=== PATIENT | male | born 1960 | race African-American/Black ===

== ENCOUNTER 2024-11-27 11:24 | Outpatient (CLI) | payer OTHER | END 2024-11-27 11:25 | disposition home or self-care (01) | LOC: CSHWCC 11:24 | PROVIDERS: ATTEND Nurse Practitioner Family | DX: I87.333 Chronic venous hypertension (idiopathic) with ulcer and inflammation of bilateral lower extremity (principal); L97.212 Non-pressure chronic ulcer of right calf with fat layer exposed; L97.321 Non-pressure chronic ulcer of left ankle limited to breakdown of skin; L97.221 Non-pressure chronic ulcer of left calf limited to breakdown of skin; L97.311 Non-pressure chronic ulcer of right ankle limited to breakdown of skin; L08.9 Local infection of the skin and subcutaneous tissue, unspecified | CPT/HCPCS: 11042; 11045; G0463; 99215 ==

== ENCOUNTER 2025-01-05 11:38 | Outpatient (CLI) | payer OTHER | END 2025-01-05 11:39 | disposition home or self-care (01) | LOC: CSHWCC 11:38 | PROVIDERS: ATTEND Nurse Practitioner Family | DX: I87.333 Chronic venous hypertension (idiopathic) with ulcer and inflammation of bilateral lower extremity (principal); L97.212 Non-pressure chronic ulcer of right calf with fat layer exposed; L97.321 Non-pressure chronic ulcer of left ankle limited to breakdown of skin; L97.221 Non-pressure chronic ulcer of left calf limited to breakdown of skin; L97.311 Non-pressure chronic ulcer of right ankle limited to breakdown of skin; L08.9 Local infection of the skin and subcutaneous tissue, unspecified | CPT/HCPCS: 11042; 11045 ==

== ENCOUNTER 2025-01-12 11:05 | Outpatient (CLI) | payer OTHER | END 2025-01-12 11:06 | disposition home or self-care (01) | LOC: CSHWCC 11:05 | PROVIDERS: ATTEND Nurse Practitioner Family | DX: I87.333 Chronic venous hypertension (idiopathic) with ulcer and inflammation of bilateral lower extremity (principal); L97.212 Non-pressure chronic ulcer of right calf with fat layer exposed; L97.321 Non-pressure chronic ulcer of left ankle limited to breakdown of skin; L97.221 Non-pressure chronic ulcer of left calf limited to breakdown of skin; L97.311 Non-pressure chronic ulcer of right ankle limited to breakdown of skin; L08.9 Local infection of the skin and subcutaneous tissue, unspecified | CPT/HCPCS: 11042 ==

== ENCOUNTER 2025-02-04 08:50 | Outpatient (CLI) | payer OTHER | END 2025-02-04 08:51 | disposition home or self-care (01) | LOC: CSHWCC 08:50 | PROVIDERS: ATTEND Nurse Practitioner Family | DX: I87.333 Chronic venous hypertension (idiopathic) with ulcer and inflammation of bilateral lower extremity (principal); L97.212 Non-pressure chronic ulcer of right calf with fat layer exposed; L97.311 Non-pressure chronic ulcer of right ankle limited to breakdown of skin; L97.929 Non-pressure chronic ulcer of unspecified part of left lower leg with unspecified severity; L08.9 Local infection of the skin and subcutaneous tissue, unspecified | CPT/HCPCS: 11042 ==